=== PATIENT | male | born 1955 | race Caucasian/White ===

== ENCOUNTER 2016-10-21 12:31 | Day surgery (SDC) | payer OTHER ==
[~2016-10-21] VITALS: Ht 180.3 cm; Wt 103.0 kg
[2016-10-21] VITALS (8 sets, daily range): BP systolic 126–150; BP diastolic 79–90; PULSE 59–95; TEMP 98.4
[~2016-10-21 12:31] MED LIST: ASPIRIN 32325 MG/TAB PO; ASPIRIN 81M81 MG/TA2 PO; ASTEPRO205.5 MCG/ NS; EPA1000 MG PO; FLAX OIL1000 MG PO; FLONASE NASAL S16 GM NS; FLOVENT DI50 MCG/Act IH; FOLIC ACID 11 MG/TA1 PO; GLUCOSAMINE & C1 CA1 PO; NORCO 325 MG-7.1 TAB PO; ONE DAILY1 TA1 PO; PRINIVIL10 MG PO; RED WINE EXTRA PO; ZOCOR 80MG80 MG PO
[2016-10-21] MEDS ORDERED: NORVASC 10MG10 MG PO (12:51)
[2016-10-21] MEDS ORDERED: FISH OIL1000 MG PO (12:52)
[2016-10-21] MEDS ORDERED: LIPITOR 80MG80 MG PO (12:53)
[2016-10-21] MEDS ORDERED: SYNTHROID0.175 MG PO (12:55)
[2016-10-21] MEDS ORDERED: PRINZIDE 12.5 M1 TAB PO (12:56)
[2016-10-21] MEDS ORDERED: LUTEIN20 M1 PO (12:58)
[2016-10-21] MEDS ORDERED: ZYRTEC 10MG10 MG PO (12:59)
[2016-10-21 13:16] LABS: HEMATOCRIT 40.1 % (42.0-52.0); HEMOGLOBIN 13.7 g/dl (13.5-18.0); MEAN CELL VOLUME 83 fl (80.0-100.0); MEAN CORPUSCULAR HEMOGLOBIN 29 pg (27.0-31.0); MEAN CORPUSCULAR HGB CONC 34 g/dl (33.0-37.0); MEAN PLATELET VOLUME 9.9 fl (7.4-10.4); PLATELET COUNT 227 K/mm3 (130-400); RED BLOOD COUNT 4.81 M/mm3 (4.20-5.60); REDCELL DISTRIBUTION WIDTH-CV 13.5 % (11.5-14.5); WHITE BLOOD COUNT 6.6 K/mm3 (4.8-10.8)
[2016-10-21 13:20] LABS: INR 1.1 (0.8-3.0); PROTHROMBIN TIME 11.9 SECONDS (9.7-12.8)
[2016-10-21] MEDS ORDERED: PLAVIX 75MG TAB75 MG PO (13:22)
[2016-10-21 13:26] LABS: CALCIUM 10.1 mg/dL (8.4-10.2); POTASSIUM 3.7 mmol/L (3.4-5.0)
[2016-10-21 13:40] LABS: CREATININE, serum 0.89 mg/dL (0.66-1.25)
[2016-10-21] MEDS ORDERED: LOPRESSOR 225 MG/TAB PO (15:32)
== END 2016-10-21 17:40 | disposition home or self-care (01) ==
LOC: COL.CAR 12:31
PROVIDERS: Internal Medicine Interventional Cardiology
DX: I25.118 Atherosclerotic heart disease of native coronary artery with other forms of angina pectoris (principal); I25.119 Atherosclerotic heart disease of native coronary artery with unspecified angina pectoris; R07.9 Chest pain, unspecified; R94.39 Abnormal result of other cardiovascular function study
CPT/HCPCS: J2250; J3010; Q9967

== ENCOUNTER 2017-02-06 12:06 | Outpatient (RCR) | payer OTHER ==
[~2017-02-06 12:06] MED LIST changes: +FISH OIL1000 MG PO; +LIPITOR 80MG80 MG PO; +LOPRESSOR 225 MG/TAB PO; +LUTEIN20 M1 PO; +NORVASC 10MG10 MG PO; +PLAVIX 75MG TAB75 MG PO; +PRINZIDE 12.5 M1 TAB PO; +SYNTHROID0.175 MG PO; +ZYRTEC 10MG10 MG PO
== END 2017-02-11 11:35 | disposition home or self-care (01) ==
LOC: COL.CR 12:06
DX: Z48.812 Encounter for surgical aftercare following surgery on the circulatory system (principal); Z95.1 Presence of aortocoronary bypass graft

== ENCOUNTER 2018-01-28 12:24 | Day surgery (SDC) | payer BC, OTHER ==
[2018-01-28] VITALS (262 sets, daily range): BP systolic 117–160; BP diastolic 71–97; PULSE 56–65; TEMP 98–98.4; O2SAT 96–100
[~2018-01-28] VITALS: Ht 180.3 cm; Wt 102.0 kg
[2018-01-28 12:58] LABS: HEMATOCRIT 42.2 % (42.0-52.0); MEAN CELL VOLUME 87 fl (80.0-100.0); MEAN CORPUSCULAR HEMOGLOBIN 29 pg (27.0-31.0); MEAN CORPUSCULAR HGB CONC 33 g/dl (33.0-37.0); MEAN PLATELET VOLUME 10.4 fl (7.4-10.4); PLATELET COUNT 203 K/mm3 (130-400); RED BLOOD COUNT 4.84 M/mm3 (4.20-5.60); REDCELL DISTRIBUTION WIDTH-CV 13.5 % (11.5-14.5)
[2018-01-28 13:04] LABS: INR 1.1 (0.8-3.0); PROTHROMBIN TIME 12.2 SECONDS (9.7-12.8)
[2018-01-28] MEDS ORDERED: GLUCOPHAGE500 MG/TAB PO (13:10)
[2018-01-28 13:15] LABS: CALCIUM 9.6 mg/dL (8.4-10.2); CREATININE, serum 0.93 mg/dL (0.66-1.25); POTASSIUM 4.1 mmol/L (3.4-5.0)
[2018-01-29] VITALS (221 sets, daily range): BP systolic 135–144; BP diastolic 81–89; PULSE 54–61; TEMP 97.6–98; O2SAT 96–100
[2018-01-29 05:07] LABS: BASO % 0.6 % (0.0-2.0); EOS # 0.4 (0.0-0.7); EOS % 6.1 % (0-4.0); GRAN # 4.6 (1.4-6.5); GRAN % 67.7 % (42.2-75.2); HEMOGLOBIN 13.6 g/dl (13.5-18.0); LYMPH # 1.2 (1.2-3.4); LYMPH % 17.7 % (20.0-51.0); MEAN CELL VOLUME 86 fl (80.0-100.0); MEAN CORPUSCULAR HEMOGLOBIN 29 pg (27.0-31.0); MEAN CORPUSCULAR HGB CONC 34 g/dl (33.0-37.0); MONO # 0.5 (0.1-0.6); MONO % 7.8 % (1.7-9.3); PLATELET COUNT 179 K/mm3 (130-400); RED BLOOD COUNT 4.65 M/mm3 (4.20-5.60); REDCELL DISTRIBUTION WIDTH-CV 13.6 % (11.5-14.5)
[2018-01-29 05:18] LABS: CALCIUM 9.1 mg/dL (8.4-10.2); CREATININE, serum 0.85 mg/dL (0.66-1.25); POTASSIUM 4.1 mmol/L (3.4-5.0)
[2018-01-29] MEDS ORDERED: PLAVIX 75MG TAB75 MG PO (11:20)
== END 2018-01-29 13:10 | disposition home or self-care (01) ==
LOC: COL.CAR 12:24 → ICU 16:54 → COL.CAR 01-29 13:10
PROVIDERS: Internal Medicine Interventional Cardiology
DX: I25.10 Atherosclerotic heart disease of native coronary artery without angina pectoris (principal); Z95.1 Presence of aortocoronary bypass graft; Z87.891 Personal history of nicotine dependence; Z79.82 Long term (current) use of aspirin; Z80.9 Family history of malignant neoplasm, unspecified
CPT/HCPCS: OP; C1725; C1760; C1769; C1874; C1884; C1887; C1894; C9604; J0583; J2250; J3010; Q9967

== ENCOUNTER 2019-05-25 12:05 | Emergency (ER) | payer BC, OTHER ==
[~2019-05-25] VITALS: Ht 180.3 cm; Wt 99.5 kg
[~2019-05-25 12:05] MED LIST changes: +GLUCOPHAGE500 MG/TAB PO
[2019-05-25 12:09] VITALS: BP 145/79
[2019-05-25] MEDS ORDERED: CRESTOR20 MG PO (12:36)
[2019-05-25] MEDS ORDERED: TOPROL XL100 MG PO (12:38)
[2019-05-25] MEDS ORDERED: PRINIVIL5 MG PO (12:38)
[2019-05-25] MEDS ORDERED: GLUCOPHAGE1000 MG PO (12:39)
[2019-05-25] MEDS ORDERED: JARDIANCE10 PO (12:40)
[2019-05-25 13:18] VITALS: PULSE 50; TEMP 96.8
== END 2019-05-25 13:18 | disposition home or self-care (01) ==
LOC: COL.ER 12:05
DX: S00.93XA Contusion of unspecified part of head, initial encounter (principal); I10 Essential (primary) hypertension; E78.5 Hyperlipidemia, unspecified; E11.9 Type 2 diabetes mellitus without complications; Z87.891 Personal history of nicotine dependence; Z79.82 Long term (current) use of aspirin; Z79.02 Long term (current) use of antithrombotics/antiplatelets; Z79.51 Long term (current) use of inhaled steroids; Z79.84 Long term (current) use of oral hypoglycemic drugs; W01.0XXA Fall on same level from slipping, tripping and stumbling without subsequent striking against object, initial encounter; Y92.59 Other trade areas as the place of occurrence of the external cause

== ENCOUNTER 2021-08-20 07:13 | Day surgery (SDC) | payer MEDICARE, OTHER ==
[~2021-08-20] VITALS: Ht 182.9 cm; Wt 107.1 kg
[2021-08-20] VITALS (10 sets, daily range): BP systolic 114–169; BP diastolic 61–87; PULSE 43–57; TEMP 97–98.3
[~2021-08-20 07:13] MED LIST changes: +CRESTOR20 MG PO; +GLUCOPHAGE1000 MG PO; +JARDIANCE10 PO; +PRINIVIL5 MG PO; +TOPROL XL100 MG PO
--- NOTE | 2021-08-20 07:30 | NUR ---
PATIENT AND AMBULATED INTO SDC UNIT WITH STEADY GAIT. CARRYS WALKER. PATIENT IS ALERT AND ORIENTED X 4. CONSENT EXPLAINED AND PATIENT SIGNED. HISTORY DONE. ASSESSMENT COMPLETED. LUNGS CTA, HEART S1S2 AND REGULAR. BOWEL SOUNDS HEARD. PEDAL PULSES FELT. HIBCLENS SCRUB TO RIGHT KNEE DONE AT 0805. JESSICA HOSE APPLIED TO LEFT LEG. CALL LIGHT EXPLAINED AND PATIENT VOICED UNDERSTANDING.
[2021-08-20] MEDS ORDERED: SYNTHROID0.137 MG (07:45)
[2021-08-20] MEDS ORDERED: PROTONIX 40MG T40 MG PO (07:49)
[2021-08-20] MEDS ORDERED: RANEXA 500MG T500 MG PO (07:49)
[2021-08-20] MEDS ORDERED: SINGULAIR 110 MG/TAB PO (07:50)
[2021-08-20] MEDS ORDERED: ZETIA 10MG TAB10 MG PO (07:51)
--- NOTE | 2021-08-20 12:28 | NUR ---
PT TO ROOM 328 PER BED WITH REPORT FROM CLAUDY CORTES @ 1200. PT IS A/O X4, LUNGS CTA, BOWEL SOUNDS PRESENT. BULKY DRESSING TO RIGH KNEE. IV TO LFA. VSS, PEDAL PULSES PRESENT.PT DENIES PAIN AT THIS TIME.
--- NOTE | 2021-08-20 20:30 | NUR ---
Pt. sitting up in bed. Pt. is A&OX3, assessment complete. IV to rt. wrist patent, IV fluids infusing per orders. Pt. reports pain to rt. knee at a 3 on pain scale. Pt. denies need for pain medications. Dressing to rt. knee CDI. Pt. denies further needs at this time. Call light within reach.
[2021-08-21 00:52] VITALS: BP 145/68; PULSE 62; TEMP 98.4
[2021-08-21 05:03] VITALS: BP 123/65; PULSE 59; TEMP 98.3
[2021-08-21 06:19] LABS: HEMATOCRIT 37.4 % (42.0-52.0); HEMOGLOBIN 12.5 g/dl (13.5-18.0)
[2021-08-21 08:00] VITALS: BP 147/76; PULSE 60; TEMP 98.2
--- NOTE | 2021-08-21 10:00 | NUR ---
COURTNEY met with the patient to discuss discharge plan. The patient lives in [place] with his , Monique (ph#[phone]). He reports independence with ADLs and has a cane and walker. The patient's PCP is Dr. Dallin Almanza and he receives his medications from [facility]. The patient doese not have a DPOA-HC, but he was interested in obtaining a form. COURTNEY provided. The patient plans on returning home with his and receive outpatient PT at [facility] upon discharge. No additional needs at this time. *Discharge plan: home with and outpatient PT*
--- NOTE | 2021-08-21 11:36 | NUR ---
First visit from the elder assistant. No needs right now.
[2021-08-21] MEDS ORDERED: ASPI325T6 PO (11:43)
[2021-08-21] MEDS ORDERED: ROXICODONE 55 MG/TAB PO (11:43)
[2021-08-21] MEDS ORDERED: ULTRAM 50MG TAB50 MG PO (11:44)
[2021-08-21] MEDS ORDERED: SENOKOT S 50 MG1 TAB PO (11:45)
[2021-08-21 12:00] VITALS: BP 190/83; PULSE 67; TEMP 98.5
--- NOTE | 2021-08-21 14:31 | NUR ---
DISCHARGE INSTRUCTIONS REVIEWED WITH PT. QUESTIONS SOLICITED AND ANSWERED. PT LEFT UNIT PER WHEEL CHAIR.
== END 2021-08-21 14:32 | disposition home or self-care (01) ==
LOC: SDCO 07:13 → SURG 07:30 → EDSTATUS 07:30 → SDCO 07:30 → SURG 09:00 → SDCO 08-21 14:32
PROVIDERS: Orthopaedic Surgery
DX: M17.0 Bilateral primary osteoarthritis of knee (principal); E11.8 Type 2 diabetes mellitus with unspecified complications; I10 Essential (primary) hypertension; I25.10 Atherosclerotic heart disease of native coronary artery without angina pectoris; E78.5 Hyperlipidemia, unspecified; E11.9 Type 2 diabetes mellitus without complications; E03.9 Hypothyroidism, unspecified; J30.9 Allergic rhinitis, unspecified; Z79.84 Long term (current) use of oral hypoglycemic drugs; Z79.82 Long term (current) use of aspirin; Z79.02 Long term (current) use of antithrombotics/antiplatelets; Z95.5 Presence of coronary angioplasty implant and graft; Z95.1 Presence of aortocoronary bypass graft; Z87.891 Personal history of nicotine dependence; Z79.890 Hormone replacement therapy
CPT/HCPCS: OP; A9284; C1713; C1776; J0690; J1815; J2250; J2704; J3010; J7030

== ENCOUNTER → 2021-08-29 | Outpatient (CLI) | payer MEDICARE, OTHER ==
[~2021-08-29] MED LIST changes: +ASPI325T6 PO; +PROTONIX 40MG T40 MG PO; +RANEXA 500MG T500 MG PO; +ROXICODONE 55 MG/TAB PO; +SENOKOT S 50 MG1 TAB PO; +SINGULAIR 110 MG/TAB PO; +SYNTHROID0.137 MG; +ULTRAM 50MG TAB50 MG PO; +ZETIA 10MG TAB10 MG PO
== END ==
LOC: COL.VAS 09:30
DX: M17.11 Unilateral primary osteoarthritis, right knee (principal)